=== PATIENT | female | born 1960 | race Caucasian/White ===

== ENCOUNTER 2017-12-23 17:26 | Emergency (ER) | payer BC ==
[2017-12-23 17:48] VITALS: BP 142/71
--- NOTE | 2017-12-23 18:06 | RAD ---
INDICATION: Left third metatarsal pain COMPARISON: None TECHNIQUE: AP, lateral, and oblique views were obtained. FINDINGS: The bony structures, joint spaces, and soft tissues are normal for age. IMPRESSION: NEGATIVE EXAMINATION.
--- NOTE | 2017-12-23 18:27 | UC ---
Ned Graves Stephanie, scribed for Elliott Parsons MD on 12/23/17 at 1800 . Lower Extremity/Ankle HPI - HPI Summary HPI Summary: The pt is a 57 y/o F presenting to with c/o L foot pain that began 2 weeks ago s/p banging her L foot on a coffee table. The pain is described as a sharp pain. Aggravating factors include certain positions and movements of the foot. - History of Current Complaint Chief Complaint: UCLowerExtremity Stated Complaint: FOOT INJURY Time Seen by Provider: 12/23/17 17:44 Hx Obtained From: Patient ?: No Onset/Duration: Sudden Onset, Lasting Weeks - 2, Still Present Severity Currently: Mild Pain Intensity: 0 Pain Scale Used: 0-10 Numeric Aggravating Factor(s): Ambulation Alleviating Factor(s): Nothing Able to Bear Weight: Yes - Allergies/Home Medications Allergies/Adverse Reactions: Allergies Allergy/AdvReac Type Severity Reaction Status Date / Time Sulfa (Sulfonamide Allergy GI Upset Verified 12/23/17 17:41 Antibiotics) Home Medications: Home Medications Pseudoephedrine HCl [Nasal Decongestant] 30 mg PO DAILY 12/23/17 [History Confirmed 12/23/17] PMH/Surg Hx/FS Hx/Imm Hx Previously Healthy: No - neuroma Cardiovascular History: Other Other Cardiovascular History: Mitral valve prolapse - Surgical History Surgical History: None - Family History Known Family History: Positive: Unknown - The pt denies fhx. - Social History Occupation: Employed Full-time Lives: With Family Alcohol Use: None Substance Use Type: None Smoking Status (MU): Never Smoked Tobacco Have You Smoked in the Last Year: No Review of Systems Constitutional: Negative Skin: Negative Eyes: Negative ENT: Negative Respiratory: Negative Cardiovascular: Negative Gastrointestinal: Negative Genitourinary: Negative Motor: Negative Neurovascular: Negative Musculoskeletal: Other: - pain in L foot Neurological: Negative Psychological: Negative Is Patient Immunocompromised?: No All Other Systems Reviewed And Are Negative: Yes Physical Exam - Summary Physical Exam Summary: General: well-appearing, no pain distress Skin: warm, color reflects adequate perfusion, dry Head: normal Eyes: EOMI, JANAY ENT: normal Neck: supple, nontender Respiratory: CTA, breath sounds present Cardiovascular: RRR Abdomen: soft, nontender Bowel: present Musculoskeletal: tender to palpation on plantar aspect of the distal third metatarsal , no tenderness with squeezing of metatarsal joints Neurological: normal, sensory/motor intact, A&O x3 Psychological: affect/mood appropriate Triage Information Reviewed: Yes Vital Signs: Initial Vital Signs Temp 99.0 F 12/23/17 17:42 Pulse 80 12/23/17 17:42 Resp 18 12/23/17 17:42 BP 142/71 12/23/17 17:42 Pulse Ox 96 12/23/17 17:42 Vital Signs Reviewed: Yes Diagnostics - Radiology Foot XRay Xray Interpretation: No Acute Changes Radiology Interpretation Completed By: Radiologist - Negative examination. ED physician has reviewed this report. Lower Extremity Course/Dx - Course Course Of Treatment: X-RAY RESULTS DISCUSSED WITH THE PATIENT. DDX INCLUDES JONES'S NEUROMA/CONTUSION/STRESS FXR. ALL OF THIS WAS DISCUSSED WITH THE PATIENT. THE PLAN IN NSAIDS, ICE, REST AND F/U WITH HER MILITARY POLICE OFFICER OR PMD; RETURN IF WORSE. - Differential Dx/Diagnosis Provider Diagnoses: LEFT FOOT PAIN Discharge - Sign-Out/Discharge Documenting (check all that apply): Discharge - Discharge Plan Condition: Stable Disposition: HOME Patient Education Materials: Foot Contusion (ED) Referrals: Jose Mares MD [Primary Care Provider] - Additional Instructions: FOLLOW UP WITH YOUR MILITARY POLICE OFFICER OR PRIMARY CARE DOCTOR IF YOUR FOOT DOES NOT HEAL COMPLETELY. GET RECHECKED FOR ANY WORSENING OF YOUR CONDITION OR QUESTIONS OR CONCERNS. YOUR BLOOD PRESSURE WAS ELEVATED TODAY; FOLLOW UP WITH YOUR PRIMARY CARE DOCTOR WITHIN ONE WEEK. - Billing Disposition and Condition Condition: STABLE Disposition: HOME The documentation as recorded by the Ned arias Stephanie accurately reflects the service I personally performed and the decisions made by me, Elliott Parsons MD.
== END 2017-12-23 18:30 | disposition home or self-care (01) ==
LOC: UCEAST 17:26
DX: M79.672 Pain in left foot (principal); D36.10 Benign neoplasm of peripheral nerves and autonomic nervous system, unspecified; I34.1 Nonrheumatic mitral (valve) prolapse; Z88.2 Allergy status to sulfonamides
CPT/HCPCS: 99211; G0463

== ENCOUNTER 2018-04-16 06:13 | Day surgery (SDC) | payer BC ==
[~2018-04-16 06:13] MED LIST: Buffered Lidocaine 0.9% SYRIN* 5 ML/SYR SYRINGE INTRADERM ONE; Dexamethasone IV* 4 MG/ML 1 ML (4 MG) IV SLOW PU ONE; Famotidine IV* 10 MG/ML 2 ML (20 mg) IV ONE
[2018-04-16] MEDS ORDERED: Dexamethasone IV* 4 MG/ML 1 ML (4 MG) ONE (06:39)
[2018-04-16] MEDS ORDERED: Famotidine IV* 10 MG/ML 2 ML (20 mg) ONE (06:40)
[2018-04-16] MEDS ORDERED: DiMENhydriNATE IV* 50 MG/ML VIAL IV PUSH ONE (07:00)
[2018-04-16] MEDS ORDERED: Propofol* 10 MG/ML 20 ML BTL IV PUSH ONE (07:21)
[2018-04-16] MEDS ORDERED: Lidocaine 2% PF * 5 ML VIAL ONE (07:21)
[2018-04-16] MEDS ORDERED: Mivacurium Chloride* 20 MG/10 ML VIAL IV ONE (07:21)
[2018-04-16] MEDS ORDERED: fentaNYL* 50 MCG/ML 2 ML VIAL (100 MCG VIAL) ONE ×3 (07:22→08:39)
[2018-04-16] MEDS ORDERED: Midazolam* 1 MG/ML 2 ML VIAL (2 MG) ONE (07:22)
[2018-04-16] MEDS ORDERED: PROCHLORPERAZINE INJ 5 MG/ML 2 ML VIAL IV PRN (07:24)
[2018-04-16] MEDS ORDERED: HYDROcodone/ACETAMIN 5-325 MG* 1 TAB PO PRN (07:24)
[2018-04-16] MEDS ORDERED: Ibuprofen TAB* 600 MG PO PRN (07:24)
[2018-04-16] MEDS ORDERED: Naloxone* 0.4 MG/ML 1 ML VIAL IV PRN (07:24)
[2018-04-16] MEDS ORDERED: oxyCODONE/Acetamin 5/325 MG* TAB PO PRN (07:24)
[2018-04-16] MEDS ORDERED: Lidocain 1% EPI 1:100,000 * 30 ML MDV ONE (07:33)
[2018-04-16] MEDS ORDERED: Ondansetron INJ* 2 MG/ML VIAL ONE (07:53)
[2018-04-16] MEDS ORDERED: oxyCODONE/Acetamin 5/325 MG* TAB ONE (08:39)
[2018-04-16] MEDS ORDERED: Ibuprofen TAB* 600 MG ONE (08:40)
[2018-04-16] MEDS: fentaNYL* 50 MCG/ML 2 ML VIAL (100 MCG VIAL) IV PRN ×2 (08:42→08:49)
[2018-04-16 09:27] VITALS: BP 121/74
--- NOTE | 2018-04-17 01:37 | OP ---
DATE OF OPERATION: 04/16/18 - [facility] DATE OF : 62 SURGEON: Lazaro Hill MD INTELLIGENCE AGENT: Dg Hallman MD PRE-OP DIAGNOSIS: Left submandibular sialolithiasis. POST-OP DIAGNOSIS: Left submandibular sialolithiasis. OPERATIVE PROCEDURE: Transoral sialolithotomy. ESTIMATED BLOOD LOSS: Less than 20 mL. SPECIMENS: Left submandibular stones to pathology. DETAILS OF PROCEDURE: This is a 58-year-old woman who has had problems with recurrent left submandibular gland swelling. She has had a prior sialolithotomy procedure done many years ago. On imaging she was noted to have another conglomerated stones in the proximal portion of Rosita's duct on the left, due to the posterior and deep location of these it was not felt to be feasible to read this in the office. DESCRIPTION OF PROCEDURE: The patient was brought to the operating room on . General anesthesia was induced. The patient was orally intubated. The patient was draped and the timeout was performed. A side biting mouth gag was used to hold the mouth open. [place] and sweetheart retractors were used to retract the cheek and tongue. The floor of mouth was then palpated. Posteriorly, there was a fullness consistent with the radiographic location of the stones. A 15-blade was used to incise mucosa. Subsequent deeper dissection was performed with spreads using a curved sharp scissors and hemostat. The duct was then encountered. A small incision was then made lengthwise. Overall, the stones and multiple small stones were then fished out with a forceps. The wound was then irrigated. No further stones were seen. The duct was located so deeply and there was enough surrounding fibrosis that it was not felt to be feasible to get a stitch into marsupialize it and so the wound was left close by secondary intention. [id number]/[facility] #: [id number] [facility] CENTERPhong
== END 2018-04-16 09:56 | disposition home or self-care (01) ==
LOC: OR 06:13
PROVIDERS: ATTEND Otolaryngology
DX: K11.5 Sialolithiasis (principal); I34.1 Nonrheumatic mitral (valve) prolapse; R42 Dizziness and giddiness; K21.9 Gastro-esophageal reflux disease without esophagitis
CPT/HCPCS: 88300; A9270-GY; J1100; J2250; J2405; J2704; J3010

== ENCOUNTER 2018-08-21 18:00 | Emergency (ER) | payer BC ==
[2018-08-21] MEDS ORDERED: Lidocaine 1%* 5 ML VIAL INJ ONE (19:08)
[2018-08-21 19:11] VITALS: BP 172/76
--- NOTE | 2018-08-21 19:14 | UC ---
Skin Complaint HPI - HPI Summary HPI Summary: 58-year-old woman comes in with chief complaint of a swelling and pain at the right heel. Abdomen a sore there for weeks as being cared for by her primary care doctor. She's not on any antibiotics. As couple days swelling increased quite a bit and is quite a bit more painful. No fevers or chills. Does feel some swelling in that ankle. She believes the original injury was from a shoe that was not fitting properly. Pain is worse when she pushes on. Rest decreases the pain. No known history of MRSA. - History of Current Complaint Time Seen by Provider: 08/21/18 19:02 Stated Complaint: SOFT TISSUE COMPLAINT - Allergy/Home Medications Allergies/Adverse Reactions: Allergies Allergy/AdvReac Type Severity Reaction Status Date / Time codeine Allergy Nausea Verified 08/21/18 19:11 Sulfa (Sulfonamide Allergy GI Upset Verified 08/21/18 19:11 Antibiotics) Review of Systems All Other Systems Reviewed And Are Negative: Yes Constitutional: Positive: Negative Skin: Positive: Other - SEE HPI Eyes: Positive: Negative ENT: Positive: Negative Respiratory: Positive: Negative Cardiovascular: Positive: Negative Gastrointestinal: Positive: Negative Motor: Positive: Negative Neurovascular: Positive: Negative Musculoskeletal: Positive: Other: - SEE HPI Neurological: Positive: Negative Psychological: Positive: Negative Is Patient Immunocompromised?: No PMH/Surg Hx/FS Hx/Imm Hx Previously Healthy: Yes - Surgical History Surgical History: Yes Surgery Procedure, Year, and Place: tonsillectomy as a child. COLONOSCOPY-WITH SEDATION- 2-3 YEARS AGO - Family History Known Family History: Positive: Unknown - The pt denies fhx. - Social History Alcohol Use: Occasionally Alcohol Amount: 1-2 DRINKS MONTHLY Substance Use Type: None Smoking Status (MU): Never Smoked Tobacco Have You Smoked in the Last Year: No Physical Exam Triage Information Reviewed: Yes Appearance: Well-Appearing, No Pain Distress, Well-Nourished Vital Signs Reviewed: Yes Eye Exam: Normal Eyes: Positive: Conjunctiva Clear Neck exam: Normal Neck: Positive: Supple Respiratory: Positive: No respiratory distress Musculoskeletal: Positive: Strength Intact, ROM Intact Neurological Exam: Normal Neurological: Positive: Alert, Muscle Tone Normal Psychological Exam: Normal Psychological: Positive: Age Appropriate Behavior Skin: Positive: Other - On the posterior aspect of her right heel over the Achilles tendon there is a 1 cm raised erythematous swelling that is fluctuant. There is no streaking no drainage. It is tender to palpation. There is some localized swelling in the area. Course/Dx - Course Course Of Treatment: The abscess on the right ankle was incised and drained by myself. Is a Betadine prep 1% lidocaine. 11 blade. Pus did drain and that's being sent for culture. Prescription for Keflex. Follow-up primary care or podiatry. Reevaluate sooner if worse. - Diagnoses Provider Diagnosis: Abscess of ankle Discharge - Sign-Out/Discharge Documenting (check all that apply): Patient Departure All imaging exams completed and their final reports reviewed: No Studies - Discharge Plan Condition: Stable Disposition: HOME Prescriptions: Cephalexin CAP* [Keflex CAP*] 500 mg PO QID #40 cap Patient Education Materials: Abscess (ED) Referrals: Jose Mares MD [Primary Care Provider] - Additional Instructions: FOLLOW UP WITH YOUR DOCTOR OR PODIATRY. GET RECHECKED FOR ANY WORSENING OF YOUR CONDITION OR QUESTIONS OR CONCERNS. - Billing Disposition and Condition Condition: STABLE Disposition: Home
--- NOTE | 2018-08-22 16:59 | UC ---
- Progress Note Progress Note: 08/22/2018 Pt w/ a RT ankle abscess, wound culture positive for Staph aureus. Pt Rx Keflex PO Awaiting for sensitivity report. No change Carmen Seymour PA-C Course/Dx - Diagnoses Provider Diagnoses: Abscess of ankle Discharge - Sign-Out/Discharge Documenting (check all that apply): Patient Departure - D/c home All imaging exams completed and their final reports reviewed: No Studies - Discharge Plan Condition: Stable Disposition: HOME Prescriptions: Cephalexin CAP* [Keflex CAP*] 500 mg PO QID #40 cap Patient Education Materials: Abscess (ED) Referrals: Jose Mares MD [Primary Care Provider] - Additional Instructions: FOLLOW UP WITH YOUR DOCTOR OR PODIATRY. GET RECHECKED FOR ANY WORSENING OF YOUR CONDITION OR QUESTIONS OR CONCERNS. - Billing Disposition and Condition Condition: STABLE Disposition: Home
--- NOTE | 2018-08-23 08:23 | UC ---
- Progress Note Progress Note: Patient was sent with keflex. Awaiting for sensitivity. MRSA negative. S.aureus positive. Course/Dx - Diagnoses Provider Diagnoses: Abscess of ankle Discharge - Sign-Out/Discharge Documenting (check all that apply): Post-Discharge Follow Up All imaging exams completed and their final reports reviewed: Yes - Discharge Plan Condition: Stable Disposition: HOME Prescriptions: Cephalexin CAP* [Keflex CAP*] 500 mg PO QID #40 cap Patient Education Materials: Abscess (ED) Referrals: Jose Mares MD [Primary Care Provider] - Additional Instructions: FOLLOW UP WITH YOUR DOCTOR OR PODIATRY. GET RECHECKED FOR ANY WORSENING OF YOUR CONDITION OR QUESTIONS OR CONCERNS. - Billing Disposition and Condition Condition: STABLE Disposition: Home
== END 2018-08-21 19:50 | disposition home or self-care (01) ==
LOC: UCEAST 18:00
DX: L02.415 Cutaneous abscess of right lower limb (principal); B95.61 Methicillin susceptible Staphylococcus aureus infection as the cause of diseases classified elsewhere; Z88.5 Allergy status to narcotic agent; Z88.2 Allergy status to sulfonamides
CPT/HCPCS: 10060; 87070; 87077; 87186; 87205; 87640; 87641; 99212; G0463

== ENCOUNTER 2019-07-09 10:24 | Emergency (ER) | payer BC ==
[2019-07-09 10:34] VITALS: BP 130/72
--- NOTE | 2019-07-09 12:11 | UC ---
Throat Pain/Nasal Rupert HPI - HPI Summary HPI Summary: Pt presents with c/o gradual onset of sinus congestions, pressure, pain, generalized malaise and fatigue that began 4 days ago. Pt has hx of sinus infectiosn and believes she has one now. - History of Current Complaint Chief Complaint: UCRespiratory Stated Complaint: SINUS ISSUE Time Seen by Provider: 07/09/19 11:04 Hx Obtained From: Patient Hx Last Menstrual Period: post ?: No Onset/Duration: Gradual Onset, Lasting Days, Still Present, Worse Since - onset Severity: Moderate Pain Intensity: 7 Pain Scale Used: 0-10 Numeric Cough: None Associated Signs & Symptoms: Positive: Nasal Discharge Related History: Seasonal Allergies - Epiglottits Risk Factors Epiglottis Risk Factors: Negative - Allergies/Home Medications Allergies/Adverse Reactions: Allergies Allergy/AdvReac Type Severity Reaction Status Date / Time codeine Allergy Nausea Verified 07/09/19 10:34 Sulfa (Sulfonamide Allergy GI Upset Verified 07/09/19 10:34 Antibiotics) PMH/Surg Hx/FS Hx/Imm Hx Previously Healthy: Yes - Surgical History Surgical History: Yes Surgery Procedure, Year, and Place: tonsillectomy as a child. COLONOSCOPY-WITH SEDATION- 2-3 YEARS AGO - Family History Known Family History: Positive: Unknown - The pt denies fhx. - Social History Occupation: Employed Full-time Lives: With Family Alcohol Use: Occasionally Alcohol Amount: 1-2 DRINKS MONTHLY Substance Use Type: None Smoking Status (MU): Never Smoked Tobacco Have You Smoked in the Last Year: No Review of Systems All Other Systems Reviewed And Are Negative: Yes Constitutional: Positive: Fatigue Skin: Positive: Negative Eyes: Positive: Negative ENT: Positive: Sinus Congestion, Sinus Pain/Tenderness Respiratory: Positive: Negative Cardiovascular: Positive: Negative Gastrointestinal: Positive: Negative Genitourinary: Positive: Negative Motor: Positive: Negative Neurovascular: Positive: Negative Musculoskeletal: Positive: Myalgia Neurological: Positive: Headache - with sinus congestion Psychological: Positive: Negative Is Patient Immunocompromised?: No Physical Exam Triage Information Reviewed: Yes Appearance: Ill-Appearing Vital Signs: Initial Vital Signs Temp 98 F 07/09/19 10:32 Pulse 94 07/09/19 10:32 Resp 16 07/09/19 10:32 BP 130/72 07/09/19 10:32 Pulse Ox 100 07/09/19 10:32 Vital Signs Reviewed: Yes Eye Exam: Normal ENT: Positive: Nasal congestion, Sinus tenderness Dental Exam: Normal Neck exam: Normal Respiratory Exam: Normal Respiratory: Positive: Normal breath sounds Cardiovascular Exam: Normal Musculoskeletal Exam: Normal Neurological Exam: Normal Psychological Exam: Normal Skin Exam: Normal Throat Pain/Nasal Course/Dx - Differential Dx/Diagnosis Differential Diagnosis/HQI/PQRI: Sinusitis, URI Provider Diagnosis: Sinusitis Discharge ED - Sign-Out/Discharge Documenting (check all that apply): Patient Departure All imaging exams completed and their final reports reviewed: No Studies - Discharge Plan Condition: Stable Disposition: HOME Prescriptions: Amoxicillin PO (*) [Amoxicillin 875 MG (*)] 875 mg PO Q12H #20 tab Patient Education Materials: Decongestant/Expectorant (By mouth), Sinusitis (ED ) Referrals: Jose Mares MD [Primary Care Provider] - If Needed - Billing Disposition and Condition Condition: STABLE Disposition: Home
== END 2019-07-09 11:55 | disposition home or self-care (01) ==
LOC: UCEAST 10:24
DX: J32.9 Chronic sinusitis, unspecified (principal); R53.83 Other fatigue; Z88.5 Allergy status to narcotic agent; Z88.2 Allergy status to sulfonamides; R53.81 Other malaise
CPT/HCPCS: 99212; G0463